=== PATIENT | female | born 1955 | race Caucasian/White ===

== ENCOUNTER 2025-07-23 04:08 | Emergency (ER) | payer MEDICAID, MEDICARE ==
[2025-07-23 04:24] LABS: BASOPHILS ABSOLUTE AUTO 0.04 K/uL (0.00-0.10); BASOPHILS PERCENT AUTO 0.8 % (0.1-1.3); EOSINOPHILS ABSOLUTE AUTO 0.14 K/uL (0.00-0.40); EOSINOPHILS PERCENT AUTO 2.9 % (0.0-5.4); IMMATURE GRAN PERCENT AUTO 0.2 % (0.0-0.7); LYMPHOCYTES ABSOLUTE AUTO 0.46 K/uL (0.8-3.3); LYMPHOCYTES PERCENT AUTO 9.4 % (11.4-47.7); MONOCYTES ABSOLUTE AUTO 0.51 K/uL (0.20-0.90); MONOCYTES PERCENT AUTO 10.5 % (3.3-12.6); NEUTROPHILS ABSOLUTE AUTO 3.72 K/uL (1.0-7.6); NEUTROPHILS PERCENT AUTO 76.2 % (40.0-78.1); PLATELET COUNT,PLT 160 K/uL (130-375); RED BLOOD CELL COUNT 5.59 M/uL (3.77-5.24); WHITE BLOOD CELL COUNT,WBC 4.9 K/uL (3.2-11.0)
[2025-07-23 04:25] LABS: O2 SATURATION VENOUS 82.5; OXYHEMOGLOBIN 76.2 %; PCO2 VENOUS 60.9 mm/Hg; PO2 VENOUS 48.3 mm/Hg; TOTAL HEMOGLOBIN 16.3 g/dL (12.0-16.0)
[2025-07-23] MEDS: methylPREDNISolone Sodium Succinate 125 MG/2 ML SDV IVPUSH ONE (04:25)
[2025-07-23 04:26] LABS: BASE EXCESS VENOUS 5.3 mm/L; BICARBONATE,VENOUS 32.8 mmol/L; PH,VENOUS 7.351 (7.350-7.450)
[2025-07-23 04:28] LABS: IMMATURE GRAN ABSOLUTE AUTO 0.01 K/uL (0.00-0.23)
[2025-07-23 04:36] LABS: BLOOD UREA NITROGEN,BUN 10 mg/dL (7-18); CARBON DIOXIDE,CO2 32 mmol/L (21-32); CHLORIDE,CL 103 mmol/L (100-108); CREATININE 0.6 mg/dL (0.6-1.0); ESTIMATED GFR 97 mL/min (>60); GLUCOSE RANDOM 105 mg/dL (74-106); POTASSIUM,K 3.4 mmol/L (3.6-5.2); SODIUM,NA 141 mmol/L (140-148)
[2025-07-23] MEDS: Sodium Chloride 0.9% 10 ML Syringe FLUSH PRN (05:36)
[2025-07-23] MEDS: Iopamidol 612 MG/ML 100 ML Bottle IV SCH (05:37)
== END 2025-07-23 08:17 | disposition home or self-care (01) ==
LOC: JP.ED 04:08
DX: J44.1 Chronic obstructive pulmonary disease with (acute) exacerbation (principal); Z88.5 Allergy status to narcotic agent
CPT/HCPCS: 36415; 71045; 71260; 80048; 82803; 85025; 94640; 96374; 99285; A9270; J2919; Q9967